=== PATIENT | female | born 1980 | race Caucasian/White ===

== ENCOUNTER → 2020-04-05 | Outpatient (CLI) | payer OTHER | END | disposition home or self-care (01) | LOC: STAR 14:12 | PROVIDERS: ATTEND Anesthesiology | DX: Z01.812 Encounter for preprocedural laboratory examination (principal); Z20.828 Contact with and (suspected) exposure to other viral communicable diseases | CPT/HCPCS: 36415; 87635 ==

== ENCOUNTER 2020-04-10 08:33 | Day surgery (SDC) | payer OTHER ==
[~2020-04-10] VITALS: Ht 175.3 cm; Wt 97.0 kg
[2020-04-10] MEDS ORDERED: CHLORHEXIDINE 15 ML UDC MM ONE (09:00)
[2020-04-10] MEDS ORDERED: LACTATED RINGERS 1,000 ML IV SCH (09:00)
[2020-04-10] MEDS ORDERED: LIDOCAINE-MPF 1%, 2ML INFIL ONE (09:00)
[2020-04-10] MEDS ORDERED: BIOT1CAP3 PO (09:16)
[2020-04-10] MEDS ORDERED: OXYC5CAP2 PO (09:16)
[2020-04-10] MEDS ORDERED: VITAMIN B12 PO (09:16)
[2020-04-10] MEDS ORDERED: MULT-658 PO (09:16)
[2020-04-10 09:17] LABS: HCG UR SG 1.018 (1.003-1.030)
[2020-04-10 09:19] VITALS: BP 118/79
[2020-04-10] MEDS ORDERED: EPINEPHRINE 1 MG/ML, 1ML ONE (09:21)
[2020-04-10] MEDS ORDERED: BUPIVACAINE/PF 0.5% ONE (09:21)
[2020-04-10] MEDS ORDERED: CHLORHEXIDINE 15 ML UDC ONE (09:23)
[2020-04-10] MEDS ORDERED: FENTANYL PF 250 MCG/5ML ONE (09:24)
[2020-04-10] MEDS ORDERED: MIDAZOLAM 1 MG/ML, 2ML ONE (09:24)
[2020-04-10] MEDS ORDERED: ROPIvacaine/PF 0.5%, 30 ML ONE (09:27)
[2020-04-10] MEDS ORDERED: PLEASE ENTER HEIGHT AND WEIGHT MC SCH (09:30)
[2020-04-10] MEDS ORDERED: PROPOFOL 10 MG/ML, 20ML ONE (10:01)
[2020-04-10] MEDS ORDERED: KETOROLAC 30 MG/1 ML ONE (10:01)
[2020-04-10] MEDS ORDERED: SUCCINYLCHOLINE 20 MG/ML, 10ML ONE (10:01)
[2020-04-10] MEDS ORDERED: ONDANSETRON 2MG/ML, 2ML ONE (10:01)
[2020-04-10] MEDS ORDERED: DEXAMETHASONE 4 MG/ML, 1ML ONE (10:01)
[2020-04-10] MEDS ORDERED: CEFAZOLIN 1,000 MG ONE (10:01)
[2020-04-10] MEDS ORDERED: ACETAMINOPHEN 325 MG TABLET PO PRN (11:00)
[2020-04-10] MEDS ORDERED: HYDROmorphone 1 MG/ML, 1ML INJ IVPush PRN (11:00)
[2020-04-10] MEDS ORDERED: ONDANSETRON 2MG/ML, 2ML IVPush PRN (11:00)
[2020-04-10] MEDS ORDERED: hydrALAzine 20 MG/ML, 1ML IV PRN (11:00)
[2020-04-10] MEDS ORDERED: OXYcodone 5 MG/5 ML ORAL.SOL UDC PO PRN (11:00)
[2020-04-10] MEDS ORDERED: FENTANYL PF 100 MCG/2ML IV PRN (11:00)
[2020-04-10] MEDS ORDERED: LABETALOL 5MG/ML, 20ML IV PRN (11:00)
[2020-04-10] MEDS ORDERED: FENTANYL PF 100 MCG/2ML ONE (12:53)
[2020-04-10] MEDS ORDERED: OXYcodone 5 MG/5 ML ORAL.SOL UDC ONE (12:53)
[2020-04-10] MEDS ORDERED: ACETAMINOPHEN 650 MG/20.3 ML UDC ONE (12:53)
== END 2020-04-10 14:55 | disposition home or self-care (01) ==
LOC: OUT 08:33
PROVIDERS: ATTEND Orthopaedic Surgery
DX: S82.872A Displaced pilon fracture of left tibia, initial encounter for closed fracture (principal); X58.XXXA Exposure to other specified factors, initial encounter; Y93.89 Activity, other specified; Y92.89 Other specified places as the place of occurrence of the external cause; Y99.8 Other external cause status; E66.9 Obesity, unspecified; Z88.1 Allergy status to other antibiotic agents; Z88.0 Allergy status to penicillin; Z79.899 Other long term (current) drug therapy; Z98.890 Other specified postprocedural states; Z87.891 Personal history of nicotine dependence; Z72.89 Other problems related to lifestyle; Z68.31 Body mass index [BMI] 31.0-31.9, adult; Z82.49 Family history of ischemic heart disease and other diseases of the circulatory system
CPT/HCPCS: 27828; 73610; 76000; 81025; C1713; J0171; J0330; J0690; J1100; J1885; J2250; J2405; J2704; J2795; J3010; J7120